=== PATIENT | male | born 1960 | race African-American/Black ===

== ENCOUNTER 2016-11-24 09:33 | Emergency (ER) | payer OTHER ==
[2016-11-24 09:44] VITALS: BP 143/85; PULSE 62; RESP 20; TEMP 98.2; O2SAT 98
--- NOTE | 2016-11-24 10:19 | EDPHY ---
H & P Time Seen by Provider: 11/24/16 10:00 HPI/ROS: CHIEF COMPLAINT: Vesicles left arm HISTORY OF PRESENT ILLNESS: 56-year-old male presents to the emergency department with concerns about possible infection in his left arm. The patient states that 2 of his coworkers have tested positive for MRSA. He is concerned about possible infection. He has no pain associated with this. He has no itching. He has no lymphadenopathy. No rash elsewhere. ROS: No chest pain or difficulty breathing. No fevers or chills. No axillary lymphadenopathy or lymphangitis. Past Medical/Surgical History: Orthopedic injury Social History: Smoking Status: Never smoked Physical Exam: On examination the patient has 2 discrete vesicular lesions to the dorsal aspect of the left mid forearm. There is clear drainage that is easily expressed. There is no surrounding redness or warmth. Nontender to palpate. No lymphangitis. No palpable left axillary lymphadenopathy. No palpable bony tenderness. No other vesicular lesions noted. Constitutional: Initial Vital Signs Temperature (C) 36.8 C 11/24/16 09:42 Heart Rate 62 11/24/16 09:42 Respiratory Rate 20 11/24/16 09:42 Blood Pressure 143/85 H 11/24/16 09:42 O2 Sat (%) 98 11/24/16 09:42 O2 Delivery Mode Room Air Allergies/Adverse Reactions: No Known Allergies Allergy (Verified 11/24/16 09:41) Home Medications: Medication Instructions Recorded NK [No Known Home Meds] 11/24/16 MDM/Departure - MDM ED Course/Re-evaluation: 56-year-old male presents to the emergency department with concerns about infection left forearm. The vesicular lesions were swabbed and clear fluid was expressed. This was sent to the lab. Because the patient has no pain, redness or warmth, lymphangitis, lymphadenopathy or fever, I do not think antibiotics are indicated currently. The patient will wait for wound culture results in 48 hours to determine if antibiotics are necessary. The patient is comfortable with this plan. Bacitracin and bandage applied. - Depart Disposition: Home, Routine, Self-Care Clinical Impression: Vesicular lesions left forearm Condition: Good Instructions: Acute Wounds (ED) Additional Instructions: Bacitracin and bandage has been applied. Please return to the emergency department if he notices any signs or symptoms of infection such as redness, swelling, pain, fever, red streaking up your arm, pain or swelling in her left armpit. Call [phone] for the results of your wound culture in 48 hours. Referrals: Christiano Lynn MD [Primary Care Provider] - As per Instructions
== END 2016-11-24 10:33 | disposition home or self-care (01) ==
DX: R23.8 Other skin changes (principal)